=== PATIENT | female | born 1990 | race Caucasian/White ===

== ENCOUNTER 2019-09-24 00:19 | Emergency (ER) | payer MEDICAID ==
[~2019-09-24] VITALS: Ht 165.1 cm; Wt 58.8 kg
[2019-09-24 00:21] VITALS: BP 123/72
[2019-09-24] MEDS ORDERED: IBUPROFEN 600 MG TABLET ONE (00:48)
[2019-09-24] MEDS ORDERED: IBUPROFEN 600 MG TABLET PO ONE (01:00)
== END 2019-09-24 02:01 | disposition home or self-care (01) ==
LOC: ED 01:16
DX: S62.317A Displaced fracture of base of fifth metacarpal bone, left hand, initial encounter for closed fracture (principal); F17.210 Nicotine dependence, cigarettes, uncomplicated; X58.XXXA Exposure to other specified factors, initial encounter; Y93.89 Activity, other specified; Y92.098 Other place in other non-institutional residence as the place of occurrence of the external cause; Y99.8 Other external cause status
CPT/HCPCS: 29125; 99283; 99406